=== PATIENT | female | born 1970 | race Caucasian/White ===

== ENCOUNTER 2023-01-25 17:56 | Inpatient (IN) | payer MEDICAID, OTHER ==
[~2023-01-25] VITALS: Ht 165.1 cm; Wt 81.6 kg
--- NOTE | 2023-01-25 18:23 | NUR ---
PT DOES NOT REMEMBER HER HOME MEDICATION NAMES AND DOSAGES.
[2023-01-25] MEDS ORDERED: HYDROMORPHONE 1 MG/1 ML DISP.SYRIN ONE ×2 (18:33→21:46)
[2023-01-25 18:34] LABS: HEMATOCRIT 44.3 % (31.2-41.9); MEAN CORPUSCULAR HEMOGLOBIN 30.7 uug (24.7-32.8); MEAN CORPUSCULAR VOLUME 90.4 fL (75.5-95.3); PLATELET COUNT (AUTO) 318 K/uL (179-408)
[2023-01-25 18:41] LABS: *BILIRUBIN,URIN 1+ (NEGATIVE); *BLOOD, URINE 2+ (NEGATIVE); *CLARITY,URINE SLIGHTLY CLOUDY (CLEAR); *COLOR,URINE YELLOW (YELLOW); *KETONES,URINE TRACE (NEGATIVE); *UROBILINOGEN,URINE 0.2 E.U./dl (NORMAL); LEUKOCYTE ESTERASE ,URINE NEGATIVE (NEGATIVE); NITRITE, URINE NEGATIVE (NEGATIVE); PH,URINE 5.5 (5.0-8.0); UGLUCOSE NEGATIVE (NEGATIVE)
--- NOTE | 2023-01-25 18:41 | NUR ---
PT IS IN ROOM #5A. DR JORGE EVALUATED THE PT.
[2023-01-25 18:43] LABS: LIPASE 292 U/L (73-393)
[2023-01-25] MEDS ORDERED: HYDROMORPHONE 1 MG/1 ML DISP.SYRIN IV ONE ×2 (18:45→21:45)
[2023-01-25 18:46] LABS: CARBON DIOXIDE 26 mmol/L (21-32); CHLORIDE 102 mmol/L (98-107); CREATININE 0.8 mg/dL (0.6-1.3); GLUCOSE 98 mg/dL (74-106); UREA NITROGEN, BLOOD 15 mg/dL (7-18)
[2023-01-25 18:52] LABS: ALANINE AMINOTRANSFERASE 19 U/L (14-59); ALKALINE PHOSPHATASE 96 U/L (50-136); ASPARTATE AMINOTRANSFERASE 10 U/L (15-37); BILIRUBIN,DIRECT < 0.1 mg/dL (0.0-0.2); BILIRUBIN,TOTAL 0.2 mg/dL (0.2-1.0); TOTAL PROTEIN, SERUM 7.3 g/dL (6.4-8.2)
[2023-01-25] MEDS ORDERED: ONDANSETRON 4 MG/2 ML VIAL ONE (18:53)
[2023-01-25] MEDS ORDERED: ONDANSETRON 4 MG/2 ML VIAL IV ONE (19:00)
[2023-01-25] MEDS ORDERED: IV NORMAL SALINE 500 ML BAG IV ONE (19:00)
[2023-01-25] MEDS ORDERED: SWABABLE VALVE TRANSFER SET EA MC ONE (19:25)
[2023-01-25] MEDS ORDERED: IOHEXOL 300MG/ML 100 ML INFUS..BTL ONE (19:25)
[2023-01-25] MEDS ORDERED: IV NORMAL SALINE 250 ML IV ONE (19:25)
[2023-01-25] MEDS ORDERED: METRONIDAZOLE 500 MG/NS 100 ML PIGGYBACK IV ONE (20:45)
[2023-01-25] MEDS ORDERED: CEFTRIAXONE 2 G in IV DEXTROSE 5% 100 ML IV ONE (20:45)
[2023-01-25] MEDS ORDERED: METRONIDAZOLE 500 MG/NS 100ML 100 ML IV ONE (21:01)
[2023-01-25 21:26] LABS: WBC,URINE NONE SEEN /HPF (0-3)
[2023-01-25 21:28] LABS: BACTERIA,URINE MANY /HPF (NONE SEEN)
[2023-01-25 21:29] LABS: CALCIUM OXALATE CRYSTALS,UR MANY /HPF (NONE SEEN); SQUAMOUS EPITHELIAL CELL,UR MANY /HPF (NONE SEEN)
--- NOTE | 2023-01-25 21:42 | NUR ---
Called [facility] for panel call. Dr. Anderson instrument and control technician. Waiting for call back.
--- NOTE | 2023-01-25 21:47 | NUR ---
Patient c/o lower abd pain 06/17. Dilaudid 0.5mg administered given per Dr. Grissom's order. Medication wasted with mill work Adrian.
[2023-01-25] MEDS ORDERED: CEFTRIAXONE 1 G VIAL ONE (21:52)
--- NOTE | 2023-01-25 22:10 | NUR ---
Rocephin 2g in Dextrose 5% 100ml reconstituted and infusing at 100ml/hr to IV to right AC.
--- NOTE | 2023-01-25 23:28 | NUR ---
Dr Anderson into eval patient.
[2023-01-26] MEDS ORDERED: MAGNESIUM HYDROXIDE 30 ML LIQUID UDC PO PRN
[2023-01-26] MEDS ORDERED: REMEDY ESSENTIAL ZINC PASTE 113 GM TP PRN
[2023-01-26] MEDS ORDERED: ONDANSETRON 4 MG/2 ML VIAL IV PRN
[2023-01-26] MEDS ORDERED: ACETAMINOPHEN 325 MG TABLET PO PRN
[2023-01-26] MEDS ORDERED: HALOPERIDOL LACTATE 5 MG/1 ML VIAL ONE (02:24)
[2023-01-26] MEDS ORDERED: HALOPERIDOL LACTATE 5 MG/1 ML VIAL IVP ONE (02:30)
[2023-01-26] MEDS ORDERED: HYDROMORPHONE 1 MG/1 ML DISP.SYRIN IV PRN (02:45)
--- NOTE | 2023-01-26 03:55 | NUR ---
Patient sleeping with no distress noted.
[2023-01-26] MEDS ORDERED: METRONIDAZOLE 500 MG/NS 100ML 100 ML IV ONE (05:38)
[2023-01-26] MEDS: METRONIDAZOLE 500 MG/NS 100ML 500 MG in PREMIXED 1 EACH IV SCH ×3 (05:44→21:20)
[2023-01-26 05:53] LABS: HEMATOCRIT 39.5 % (31.2-41.9); MEAN CORPUSCULAR HEMOGLOBIN 30.4 uug (24.7-32.8); MEAN CORPUSCULAR VOLUME 90.8 fL (75.5-95.3); PLATELET COUNT (AUTO) 255 K/uL (179-408)
[2023-01-26 06:06] LABS: CREATININE 0.7 mg/dL (0.6-1.3); MAGNESIUM 1.7 mg/dL (1.8-2.4); PHOSPHOROUS 3.5 mg/dL (2.5-4.9); POTASSIUM 3.8 mmol/L (3.5-5.1)
[2023-01-26] MEDS ORDERED: PANTOPRAZOLE SODIUM 40 MG VIAL ONE (08:23)
[2023-01-26] MEDS: PANTOPRAZOLE SODIUM 40 MG VIAL IV SCH (08:37)
[2023-01-26] MEDS: CIPROFLOXACIN IV 400 MG in PREMIXED 1 EACH IV SCH ×2 (08:37→21:18)
--- NOTE | 2023-01-26 08:41 | NUR ---
Pt in stable condition. Pt not complaining of pain. Vitals stable. Currently waiting for placement upstairs. Safety measures in place. Will continue to monitor.
[2023-01-26] MEDS ORDERED: MAGNESIUM SULFATE/D5W 100 ML ONE ×2 (08:45→10:56)
[2023-01-26] MEDS: MAGNESIUM SULFATE/D5W 100 ML IV SCH ×2 (09:40→11:43)
--- NOTE | 2023-01-26 10:39 | NUR ---
Gave report to Gilma (ALLYN).
--- NOTE | 2023-01-26 11:15 | NUR ---
Pt transferred to Rm 318. Pt arrived to bed safely and in stable condition. Gave paperwork to dehydration unit operator. All belongings with Patient. All medication given to Genner.
[2023-01-26 11:30] VITALS: BP 110/67
--- NOTE | 2023-01-26 11:38 | NUR ---
PT RCVD FROM ER NURSE VIA W/C. ADMISSION PROTOCOL STARTED. V/S TAKEN. BELONGINGS ACCOUNTED FOR. PROVIDED TEACHING FOR PT. PT. NPO AT THIS TIME.
[2023-01-26] MEDS: IV D5 1/2 NS 1000 ML 1,000 ML IV PRN ×2 (11:42→21:29)
[2023-01-26 15:46] VITALS: BP 113/68
--- NOTE | 2023-01-26 16:21 | NUR ---
HOME MEDICATIONS LIST CANNOT BE OBTAINED. PT. CANNOT REMEMBER AND THERE IS NO FAMILY MEMBER LEFT AT HOME. PT PHARMACY IS CLOSED ON FRIDAY. TRIED CALLING [facility] BUT NO ONE IS PICKING UP THE PHONE. PHARMACY ([facility]) MADE AWARE. WILL FOLLOW UP [facility] WHEN IT IS OPEN.
--- NOTE | 2023-01-26 18:07 | NUR ---
PT AOOX4. NO SOB NOTED. AMBULATORY. CONTINENT BOWEL AND BLADDER. IV AC #18 INTACT AND PATENT WITH D5 RUNNING 125 CC/HR. IV MAGNESIUM AND FLAGYL GIVEN. ASKED THE DR. FOR PAIN MEDS. AWAITING FOR DR REPLLam. PT NPO AT THIS TIME. WILL F/U PT. [facility] FOR PT HOME MEDS.
[2023-01-26] MEDS ORDERED: KETOROLAC TROMETHAMINE 30 MG INJ IVP PRN (18:30)
[2023-01-26] MEDS ORDERED: LORAZEPAM 1 MG TABLET PO PRN (18:30)
[2023-01-26 20:00] VITALS: BP 119/74
--- NOTE | 2023-01-26 20:00 | NUR ---
AWAKE, ALERT,ORIENTED.NPO MAINTANED.NO N/V NOTED.BRP. NO C/O VOICED IV CONT.[id number]/HR. CLOSE MONITORING
[2023-01-27 04:00] VITALS: BP 102/66
[2023-01-27] MEDS: METRONIDAZOLE 500 MG/NS 100ML 500 MG in PREMIXED 1 EACH IV SCH (05:17)
[2023-01-27 06:42] LABS: HEMATOCRIT 37.9 % (31.2-41.9); MEAN CORPUSCULAR VOLUME 91.1 fL (75.5-95.3); PLATELET COUNT (AUTO) 258 K/uL (179-408)
[2023-01-27 07:04] LABS: CREATININE 0.7 mg/dL (0.6-1.3); MAGNESIUM 1.9 mg/dL (1.8-2.4); PHOSPHOROUS 3.7 mg/dL (2.5-4.9); POTASSIUM 3.6 mmol/L (3.5-5.1)
[2023-01-27] MEDS: PANTOPRAZOLE SODIUM 40 MG VIAL IV SCH (09:44)
[2023-01-27] MEDS: CIPROFLOXACIN IV 400 MG in PREMIXED 1 EACH IV SCH (09:44)
--- NOTE | 2023-01-27 11:00 | NUR ---
Patient is eager to go home. IV infiltrated while receiving IV abx. MD aware. 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 Pt tolerated CLD well and educated on the need for her to advance her diet as tolerated. No c/o N/V. Discharge instructions reviewed with pt and belongings verified. IV access removed.
[2023-01-27 11:30] VITALS: BP 119/81
[2023-01-27] MEDS ORDERED: METR500T PO (13:33)
[2023-01-27] MEDS ORDERED: CIPR500T5 PO (13:33)
== END 2023-01-27 14:00 | disposition home or self-care (01) | DRG 720 ==
LOC: ER 17:56 → TRANSITION 01-26 01:12 → MEDSURG3 01-26 10:32
PROVIDERS: ADMIT Student in an Organized Health Care Education/Training Program; ATTEND Student in an Organized Health Care Education/Training Program
DX: A41.9 Sepsis, unspecified organism (principal); D25.9 Leiomyoma of uterus, unspecified; K57.32 Diverticulitis of large intestine without perforation or abscess without bleeding; Z98.84 Bariatric surgery status; E66.9 Obesity, unspecified; Z68.30 Body mass index [BMI] 30.0-30.9, adult; Z88.5 Allergy status to narcotic agent; F17.210 Nicotine dependence, cigarettes, uncomplicated; R42 Dizziness and giddiness
CPT/HCPCS: 36415; 83690; 83735; 84100; 85025; A4663; C9113; G0378; J0696; J0744; J1170; J1630; J2405; J3475; J3490; J7040; Q9967